=== PATIENT | male | born 1975 | race Caucasian/White ===

== ENCOUNTER → 2022-04-15 | Day surgery (SDC) | payer OTHER ==
[2022-04-10 14:32] VITALS: BMI 37.7
[~2022-04-15] MED LIST: LACTATED RINGERS 1,000 ML IV SCH; LIDOCAINE 1% (10MG/ML) FOR IV START INTRADERMA PRN; PROPOFOL 10 MG/ML 20 ML VIAL IV ONE
[2022-04-15 10:44] VITALS: TEMP 97.1
--- NOTE | 2022-04-15 12:02 | P.GSHP ---
History of Present Illness H&P Date: 04/15/22 46-year-old male here today for upper endoscopy. Patient has had a one-month history of left upper quadrant pain. Some radiation to the midline. Occurs after all meals. Some nausea. No vomiting. No GERD symptoms. No rectal bleeding or melena Past Medical History Past Medical History: GERD/Reflux Additional Past Medical History / Comment(s): states stomach pain when he eats. History of Any Multi-Drug Resistant Organisms: None Reported Past Surgical History: Orthopedic Surgery Additional Past Surgical History / Comment(s): steel plate right arm (15 yrs old) Past Anesthesia/Blood Transfusion Reactions: No Reported Reaction Past Psychological History: No Psychological Hx Reported Smoking Status: Former smoker Past Alcohol Use History: None Reported Additional Past Alcohol Use History / Comment(s): quit smoking 2007 (33 yrs old)., hx of 1/2 ppd., started smoking age 21. Past Drug Use History: None Reported - Past Family History Mother Family Medical History: No Reported History Medications and Allergies Home Medications Medication Instructions Recorded Confirmed Type Murtaza Back & Body 1 dose PO DIRECTED PRN 04/10/22 04/15/22 History Omeprazole 40 mg PO DAILY 04/15/22 04/15/22 History Allergies Allergy/AdvReac Type Severity Reaction Status Date / Time No Known Allergies Allergy Verified 04/10/22 14:21 Surgical - Exam Vital Signs Temp Pulse Resp BP Pulse Ox 97.1 F L 79 14 132/65 97 04/15/22 10:42 04/15/22 10:42 04/15/22 10:42 04/15/22 10:42 04/15/22 10:42 Physical exam: General: Well-developed, well-nourished HEENT: Normocephalic, sclerae nonicteric Abdomen: Nontender, nondistended Extremities: No edema Neuro: Alert and oriented Assessment and Plan (1) Left upper quadrant abdominal pain Narrative/Plan: Will proceed with upper endoscopy at this time. Current Visit: Yes Status: Acute Code(s): R10.12 - LEFT UPPER QUADRANT PAIN SNOMED Code(s): 223595627
--- NOTE | 2022-04-15 12:12 | P.PCN ---
Date of Procedure: 04/15/22 Procedure(s) Performed: Preoperative Dx: Left upper quadrant/epigastric pain Postoperative Dx: Mild gastritis Procedure: EGD with Bx Anesthesia: Sedation Endoscopist: Dr. Lieberman Specimens: Antrum Endoscopic Procedure: The patient was on the endoscopy table in the left decubitus position. The Olympus gastroscope was inserted into the oropharynx and passed under direct visualization to the region of the third portion of the duodenum. From that point the scope was slowly withdrawn inspecting all surface s carefully. There were no neoplastic inflammatory or polypoid lesions throughout the duodenum. The pylorus was widely patent. The stomach was carefully inspected. There was mild gastritis present. A biopsy of the antrum took place to rule out H. pylori. Retroflexion revealed a normal hiatus. The esophagus was then carefully examined. There were no neoplastic inflammatory or polypoid lesions throughout the visualized esophagus. The patient was then taken to the recovery room in stable condition per anesthesia guidelines. Recommendations: Await biopsy results. Continue antiacid therapy. Findings are relatively mild and I'm not sure that would explain the degree of pain the patient is describing.
[2022-04-15 12:22] VITALS: RESP 16
[2022-04-15 12:48] VITALS: BP 131/80; PULSE 74
== END | disposition home or self-care (01) ==
LOC: ORWHC2ENDO 09:37
PROVIDERS: ATTEND Surgery
DX: K29.50 Unspecified chronic gastritis without bleeding (principal); K21.9 Gastro-esophageal reflux disease without esophagitis; Z98.890 Other specified postprocedural states; Z79.899 Other long term (current) drug therapy; Z87.891 Personal history of nicotine dependence
CPT/HCPCS: 43239; J2704; 88305

== ENCOUNTER 2023-07-19 19:25 | Outpatient (CLI) | payer OTHER ==
--- NOTE | 2023-07-22 07:58 | SLS ---
SLEEP STUDY STUDY PERFORMED: Polysomnography. SUMMARY: This is a 48-year-old male patient who saw me recently in the office regarding sleep apnea. The patient reported loud snoring and witnessed apneas by family members with an [place] score of 15. He also is encountering excessive fatigue and tiredness and sleepiness during the day. He has a Mallampati class 4, and he has overall high clinical suspicion for obstructive sleep apnea. The patient, based on that, underwent a home sleep study, and the patient was found to have severe MANDY with an AHI of 85.6. Based on that, the patient was asked to come into the sleep center to undergo a CPAP titration. PERTINENT PHYSICAL FINDINGS: Height is 5 feet 8 inches, weight is 265, and BMI 40.3. TECHNICAL DESCRIPTION: The sleep evaluation of the patient consisted of clinical polysomnography, nocturnal respiratory battery, left and right anterior tibialis surface electromyography. The standard montage for the clinical polysomnography included the EEG, EOG, EMG, and EKG. Respiratory battery included measurements of nasal/buccal airflow, thoracic, and/or abdominal effort and intercostal surface EMG. Nocturnal oxyhemoglobin saturations were obtained by finger oximetry. Digital video and audio monitoring were done throughout the entire night to check or parasomnias. Step-eden titration with positive airway pressure was utilized during the study to control the respiratory events. SLEEP ARCHITECTURE: Total time in bed was 424.0 minutes. The total sleep time was 364.0 minutes. The sleep efficiency was calculated to be at 85.8%. Sleep architecture was characterized by 2.9% stage I, 51.2% stage II, 13.5% stage III, 32.4% REM sleep. The wake after sleep onset time was 28 minutes. Latency to REM sleep was 74 minutes. Sleep latency was 29 minutes. RESPIRATORY SUMMARY: CPAP titration was started initially at a CPAP pressure of 5 cm of water, and the CPAP pressure was increased by increments of 1 to 2 cm to reach a maximum CPAP pressure of 15 cm of water. At that point, the patient was still having some occasional obstructive apneas. The patient was accordingly switched to a BiPAP, and the titration was continued utilizing BiPAP pressures of 14/10, 13/9, 14/10, and then 16/12 cm of water. I carefully reviewed the titration taking into account the patient's sleep stage and body position. There was no obvious improvement in the overall respiratory events while being on BiPAP treatment. Oxygenation improved and obstructive respiratory events were essentially eliminated specific on the BiPAP pressures of 16/12 cm of water. The patient did encounter a REM rebound. The patient was studied in a supine body position. No desaturations and no obstructive or central apneas while being on BiPAP treatment. OXYGENATION ANALYSIS: The patient encountered significant oxygen desaturation while being on CPAP. Oxygenation improved while the patient being on a BiPAP, especially at the pressures of 16/12 cm of water. PERIODIC LIMB MOVEMENT ACTIVITY: No significant periodic limb movement activity noted. SLEEP CONTINUITY: The patient had a total of 62 arousals with an index of 10.2. Respiratory arousal index was 5.1. CARDIAC SUMMARY: The average heart rate was 93, minimum heart rate was 88, maximum heart rate was 100. ASSESSMENT: 1. Severe symptomatic obstructive sleep apnea with an AHI of 85.6. The patient failed CPAP therapy, and the patient underwent a successful BiPAP therapy with complete elimination of the obstructive respiratory events and significant improvement in the oxygenation. 2. REM rebound related to CPAP/BiPAP treatment. 3. Nocturnal oxygen desaturation recovered with BiPAP therapy. 4. Chronic hypersomnia with an [place] score of 15. 5. Obesity with BMI of 40. PLAN: Initiate BiPAP therapy at a pressure of 16/12 cm of water. Provide the patient with appropriate mask interface. The patient was given an AirFit F20 full-face mask, medium in size. Heated humidity will be applied. The patient will be encouraged to lose weight. The patient will see me back in the office in 30 to 90 days to assess clinical response and compliancy. I anticipate improvement in his symptoms while on treatment. MMODL / IJN: [id number] /
== END 2023-07-20 05:40 | disposition home or self-care (01) ==
LOC: 3 N SLEEP 19:25
PROVIDERS: ATTEND Internal Medicine Critical Care Medicine
DX: G47.33 Obstructive sleep apnea (adult) (pediatric) (principal); G47.419 Narcolepsy without cataplexy; G47.10 Hypersomnia, unspecified; E66.9 Obesity, unspecified; G47.52 REM sleep behavior disorder; G47.36 Sleep related hypoventilation in conditions classified elsewhere; Z68.41 Body mass index [BMI] 40.0-44.9, adult
CPT/HCPCS: 95811

== ENCOUNTER 2023-09-15 08:50 | Day surgery (SDC) | payer OTHER ==
[~2023-09-15 08:50] MED LIST changes: -LACTATED RINGERS 1,000 ML IV SCH; -PROPOFOL 10 MG/ML 20 ML VIAL IV ONE
[2023-09-15] MEDS: LACTATED RINGERS 1,000 ML IV SCH (09:21)
[2023-09-15 09:37] VITALS: RESP 16; TEMP 96.9
[2023-09-15 09:37] LABS: Glucose,Whole Blood 109 mg/dL (70-110)
[2023-09-15] MEDS ORDERED: LIDOCAINE 1% INJ 10MG/ML (20 ML MDV) ONE (09:41)
[2023-09-15] MEDS ORDERED: PROPOFOL 10 MG/ML 20 ML VIAL IV ONE (09:41)
--- NOTE | 2023-09-15 09:48 | P.GSHP ---
History of Present Illness H&P Date: 09/15/23 Chief Complaint: Colon cancer screening 48-year-old male here today for colonoscopy. He has not had one previously. Patient has had complaints of left upper quadrant pain. No rectal bleeding or melena. No change in bowel habits. Thinks his grandmother may have had colon cancer. Past Medical History Past Medical History: Diabetes Mellitus, GERD/Reflux, Hyperlipidemia Additional Past Medical History / Comment(s): Upper stomach pain off and on. Slightly anemic, "borderline diabetes". History of Any Multi-Drug Resistant Organisms: None Reported Past Surgical History: Orthopedic Surgery Additional Past Surgical History / Comment(s): steel plate right arm (15 yrs old) Past Anesthesia/Blood Transfusion Reactions: No Reported Reaction Smoking Status: Former smoker - Past Family History Mother Family Medical History: COPD Medications and Allergies Home Medications Medication Instructions Recorded Confirmed Type Murtaza Back & Body 1 dose PO DIRECTED PRN 04/10/22 09/10/23 History Ferrous Sulfate [Iron (65 MG 325 mg PO QAM 09/10/23 09/10/23 History Elemental)] Pantoprazole Sodium 20 mg PO BID 09/10/23 09/10/23 History Rosuvastatin Calcium 10 mg PO QAM 09/10/23 09/10/23 History metFORMIN HCL [Glucophage] 500 mg PO BID 09/10/23 09/10/23 History Allergies Allergy/AdvReac Type Severity Reaction Status Date / Time No Known Allergies Allergy Verified 09/15/23 09:18 Surgical - Exam Vital Signs Temp Pulse Resp BP Pulse Ox 96.9 F L 93 16 164/99 96 09/15/23 09:22 09/15/23 09:22 09/15/23 09:22 09/15/23 09:22 09/15/23 09:22 Physical exam: General: Well-developed, well-nourished HEENT: Normocephalic, sclerae nonicteric Abdomen: Nontender, nondistended Extremities: No edema Neuro: Alert and oriented Assessment and Plan (1) Colon cancer screening Narrative/Plan: Will proceed with colonoscopy at this time Current Visit: Yes Status: Acute Code(s): Z12.11 - ENCOUNTER FOR SCREENING FOR MALIGNANT NEOPLASM OF COLON SNOMED Code(s): 060039590
--- NOTE | 2023-09-15 10:01 | P.PCN ---
Date of Procedure: 09/15/23 Procedure(s) Performed: PREOPERATIVE DIAGNOSIS: Colon cancer screening POSTOPERATIVE DIAGNOSIS: Small sigmoid polyp, diverticulosis PROCEDURE: Colonoscopy with snare polypectomy ANESTHESIA: MAC SURGEON: Vivek Lieberman M.D. SPECIMENS: Polyp ENDOSCOPIC PROCEDURE: The patient was placed on the endoscopy table in the left decubitus position. The Olympus colonoscope was inserted into the anus and passed under direct visualization to the base of the cecum. The appendiceal orifice was visualized. From that point the scope was slowly withdrawn inspecting all surfaces carefully. There were no neoplastic inflammatory or polypoid lesions throughout the cecum, ascending, transverse, and descending colon. In the sigmoid colon a small polyp was removed using the cold snare technique. The remainder of the sigmoid and rectum were normal. The patient had moderate left-sided diverticulosis. Digital rectal examination was normal. The patient was taken to the recovery room in stable condition per anesthesia guidelines. RECOMMENDATIONS: Await biopsy results. Resume diet. No explanation for left upper quadrant pain seen at this time.
[2023-09-15] MEDS: LACTATED RINGERS 1,000 ML IV ONE (10:04)
[2023-09-15 10:12] LABS: Glucose,Whole Blood 123 mg/dL (70-110)
[2023-09-15 10:35] VITALS: BP 128/86; PULSE 74
== END 2023-09-15 10:41 | disposition home or self-care (01) ==
LOC: ORWHC2ENDO 08:50
PROVIDERS: ATTEND Surgery
DX: Z12.11 Encounter for screening for malignant neoplasm of colon (principal); K63.5 Polyp of colon; E78.5 Hyperlipidemia, unspecified; K21.9 Gastro-esophageal reflux disease without esophagitis; D64.9 Anemia, unspecified; E66.01 Morbid (severe) obesity due to excess calories; K57.30 Diverticulosis of large intestine without perforation or abscess without bleeding; Z87.891 Personal history of nicotine dependence; Z79.84 Long term (current) use of oral hypoglycemic drugs; Z79.899 Other long term (current) drug therapy; Z68.39 Body mass index [BMI] 39.0-39.9, adult
CPT/HCPCS: 88305; 45385; J2001; J2704

== ENCOUNTER → 2024-05-25 | Outpatient (CLI) | payer OTHER ==
--- NOTE | 2024-05-25 20:01 | CT ---
EXAMINATION TYPE: CT thoracic spine wo con CT DLP: 1339 mGycm, Automated exposure control for dose reduction was used. DATE OF EXAM: 05/25/2024 3:38 PM COMPARISON: None. CLINICAL INDICATION: Male, 48 years old with history of SPINAL STENOSIS M48.00; PHH, Back and rib eloy n. No injury. TECHNIQUE: Axial images of the thoracic spine were obtained without contrast. Coronal and sagittal re formats were performed. Contrast used: mL of , none Oral contrast used: none FINDINGS: The thoracic vertebral bodies have preserved heights and alignment. Mild multilevel degen eration changes throughout the spine with osteophyte formation and disc space narrowing with facet sanam int arthropathy. No significant neural foraminal or spinal canal stenosis. IMPRESSION: 1. No spinal canal or neural foraminal stenosis is identified. 2. Mild multilevel degeneration changes throughout the spine. [facility], , 05/25/2024 7:59 PM
== END | disposition home or self-care (01) ==
LOC: RADCTMAIN 15:13
PROVIDERS: ATTEND Internal Medicine Geriatric Medicine
CPT/HCPCS: 72128

== ENCOUNTER → 2024-06-27 | Outpatient (CLI) | payer OTHER ==
[2024-06-27 13:08] VITALS: BP 122/88; PULSE 76; RESP 16
--- NOTE | 2024-06-27 15:09 | P.PAINPG ---
PQRS Measure Charge Sheet Comment: HISTORY OF PRESENT ILLNESS: A 49 yr old male w at side as a referral from [facility] presents today w severe and chronic midback pain secondary to radiculopathy, spondylosis and facet arthropathy without myelopathy for evaluation. Pt states pain level is provoked at 7 /10 in intensity, constant, localized in the L mid spine, predominantly axial, dull in character w occasional shooting pain towards the L ribs. Pain is provoked by over activity. Pain is alleviated by chiropractic treatments semi monthly x 3 mo which ended in 2022, physician guided home exercises 4 weekly since 2022, medications (Tyl), topical [place], repositioning and rest . Oswestry axial pain score at 24. PMH: OA, NIDDM II, GERD, Hyperlipidemia PSH: Colonoscopy (2023), RUE Steel Plate (1989) SH: Former tobaccouser, Occ ETOH use, No illicit drug use FH: Mo- COPD All: See list Meds: See list REVIEW OF ORGAN SYSTEMS: CONSTITUTIONAL: No fevers or chills. No recent weight loss. NEUROLOGICAL: + numbness and tingling along the distal extremities. No seizure disorders or headaches. MUSCULOSKELETAL: + pain PSYCHIATRIC: Denies current depression or suicidal thoughts. Physical Examinations : Constitutional : Cooperative , not in acute distress . Neurologic : Cranial nerve II to XII intact. No focal neurological deficits. Psychiatric : alert & oriented x 3. Matching mood & appropriate affect. Judgment & insight intact. Musculoskeletal : Cervical Spine Motor strength in the deltoid and biceps: Normal right side. Normal Left side Motor strength biceps and the wrist extensors: Normal right side . Normal left side Motor strength in the triceps muscle: Normal right side. Normal left side Deep tendon reflexes: Normal at the biceps. Normal at Brachioradialis. Normal at triceps Vertebral body tenderness to deep palpation over Cervical facet loading test: positive bilaterally Spurling test: positive bilaterally Neck distraction test: positive bilaterally Deborah sign: positive bilaterally Thoracic spine Vertebral body TTP over T9 Massey test positive L T9-T10 Lumbar spine Motor strength lower extremities ,thigh and legs 5/5 Right side , 5/5 Left side Deep tendon reflexes : Normal Knee Jerk. Normal Ankle Jerk Vertebral body tenderness over Massey Test positive Lumbar facet Loading Test: positive Right / positive Left Range of motion of the lumbar spine Flexion 30 degrees, extension 10 degrees Straight Leg Raise test: Left/ Right positive at degrees Aston test: positive right / positive left. Severe tenderness over the Sacroiliac joint on the Right / Left sides Gaenslen test: positive bilaterally Seated flexion test: positive bilaterally. Sacral spine : Severe tenderness over the Sacroiliac joint: right side / left side Range of motion: Flexion of the lumbar spine <60 degrees Range of motion: Extension of the lumbar spine <20 degrees Gaenslen's Test positive Aston test: positive right side / left side Thigh Thrust Test Sacral Thrust Test Imaging: CT non contrast thoracic spine from 10/08/23 & 06/04/24 reviewed Assessment/ Plan : Thoracic radiculopathy Recommendation of BRINDA L paramedian T9-T10 #1. Risks, benefits of procedure discussed and patient verbalized understanding. Admits to anti- coagulant use or medical history of diabetes. Protocol for discontinuation/ continuation of medications ricardo procedure discussed. All questions answered. I have spent greater than 30 minutes on patient care today. Dr Burciaga was available by phone for the evaluation of this patient. The time was used to review the medical records including relevant urine studies and Prescription history (MAPs), review of the available imaging, evaluation and examination of the patient, coordination of care with the medical staff and if applicable referring physicians, as well as creation of the medical record Home Medications: Ambulatory Orders Murtaza Back & Body 1 dose PO DIRECTED PRN 04/10/22 Ferrous Sulfate [Iron (65 MG Elemental)] 325 mg PO QAM 09/10/23 Pantoprazole Sodium 20 mg PO BID 09/10/23 Rosuvastatin Calcium 10 mg PO QAM 09/10/23 metFORMIN HCL [Glucophage] 500 mg PO BID 09/10/23 Controlled Substance Measures - Controlled Substance Measures Is patient prescribed a controlled substance at discharge?: No
== END ==
LOC: PNWHC3 12:36
PROVIDERS: ATTEND Specialist
DX: M51.14 Intervertebral disc disorders with radiculopathy, thoracic region (principal)
CPT/HCPCS: 99211

== ENCOUNTER 2024-07-29 07:24 | Day surgery (SDC) | payer OTHER ==
[~2024-07-29 07:24] MED LIST changes: +LACTATED RINGERS 1,000 ML IV SCH; -LIDOCAINE 1% (10MG/ML) FOR IV START INTRADERMA PRN
[2024-07-29] MEDS ORDERED: LACTATED RINGERS 1,000 ML IV SCH (07:47)
[2024-07-29 08:04] VITALS: TEMP 97.2
[2024-07-29 08:11] LABS: Glucose,Whole Blood 104 mg/dL (70-110)
[2024-07-29] MEDS ORDERED: methylPREDNISolone ACETATE 80 MG/ML 1 ML VIAL ONE (08:46)
[2024-07-29] MEDS ORDERED: IOPAMIDOL M300 15ML VIAL ONE (08:46)
[2024-07-29 09:15] VITALS: RESP 16
[2024-07-29 09:27] VITALS: BP 146/87; PULSE 72
--- NOTE | 2024-07-29 09:31 | P.PCN ---
Description of Procedure: PREOPERATIVE DIAGNOSIS: 1- Thoracic Degenerative Disc Diseases 2-Thoracic spondylosis with Facet arthropathy without myelopathy. 3-Thoracic spinal stenosis POSTOPERATIVE DIAGNOSIS: 1-Thoracic degenerative disc disease. 2-Thoracic spondylosis with facet arthropathy without myelopathy. 3-Thoracic spinal stenosis. PROCEDURE Injection of radio contrast material into T9-10 interspace, interpretation of epidurogram, injection of steroid at T 9-10 epidural space under fluoroscopic guidance. ANESTHESIA: Lidocaine 1% subcutaneously. In OR continuous pulse ox, EKG, blood pressure and verbal communication was maintained with the patient. EBL: Minimal PROCEDURE INDICATION: Before the procedure were discussed with the patient detailed procedure, alternatives, complications including lung puncture, infection, bleeding, nerve damage, paralysis all of which could be permanent. Patient understands and all questions were answered. PROCEDURE DESCRIPTION : After getting consent, patient in OR in prone position. Back was prepped with chlorhexidine and draped in sterile fashion. After injecting 10 mL of 1% lidocaine subcutaneously, a 20-gauge Tuohy needle was introduced at T 9-10 interspace with loss of resistance technique using a syringe filled with air. Negative CSF, negative blood, negative paresthesia. Needle position was confirmed with AP and lateral view of the fluoroscope. After repeat negative aspiration 2 mL of Omnipaque 200 water soluble contrast was injected. Contrast was noted in the epidural space. No contrast was noted into intrathecal or intravascular space. After repeat negative aspiration 5 mL solution was injected intermittently which consists of 4 mL of preservative-free normal saline mixed with 1 mL of 80 mg Depo-Medrol. Needle was withdrawn intact. Skin was cleansed and Band-Aids was applied. DISPOSITION / PLANS: The patient tolerated the procedure well. No complication. The patient was placed in a supine position and transferred to the recovery area in a stable condition for observation. There was no evidence of lower extremity motor or sensory deficit after the procedure. Patient was discharged from the recovery room after meeting discharge criteria. Home discharge instructions were given to the patient by the staff. The patient was reexamined prior to discharge. The patient will schedule a follow up in the clinic in 2-4 weeks.
--- NOTE | 2024-07-29 09:45 | FL ---
Fluoroscopy History: TESI Thoracic Epid Inj 41sec fluoro time .28620 [facility], , 07/29/2024 9:42 AM
== END 2024-07-29 09:40 | disposition home or self-care (01) ==
LOC: ORPAIN 07:24
PROVIDERS: ATTEND Pain Medicine Interventional Pain Medicine
DX: M47.814 Spondylosis without myelopathy or radiculopathy, thoracic region (principal); M48.04 Spinal stenosis, thoracic region; M51.34 Other intervertebral disc degeneration, thoracic region; Z79.899 Other long term (current) drug therapy
CPT/HCPCS: 62321; Q9967; J1010

== ENCOUNTER → 2024-08-25 | Outpatient (CLI) | payer OTHER ==
[2024-08-25 11:12] VITALS: BP 154/90; PULSE 92; RESP 16; TEMP 97.1
--- NOTE | 2024-08-25 14:31 | P.PAINPG ---
PQRS Measure Charge Sheet Comment: HISTORY OF PRESENT ILLNESS: A 49 yr old male presents today w severe and chronic midback pain secondary to radiculopathy, spondylosis and facet arthropathy without myelopathy for evaluation s/p BRINDA T9-T10 #1. Pt states he experienced 95% pain relief x 1 mo s/p procedure. Pt states pain level is provoked at 1 /10 in intensity, constant, localized in the L mid spine, predominantly axial, dull in character w occasional shooting pain towards the L ribs. Pain is provoked by over activity. Pain is alleviated by chiropractic treatments semi monthly x 3 mo which ended in 2022, physician guided home exercises 4 weekly since 2022, medications, topical [place], repositioning and rest . Interventional procedures include BRINDA T9-T10 x1 Medications include Tyl, TigerBalm REVIEW OF ORGAN SYSTEMS: CONSTITUTIONAL: No fevers or chills. No recent weight loss. NEUROLOGICAL: + numbness and tingling along the distal extremities. No seizure disorders or headaches. MUSCULOSKELETAL: + pain PSYCHIATRIC: Denies current depression or suicidal thoughts. Physical Examinations : Constitutional : Cooperative , not in acute distress . Neurologic : Cranial nerve II to XII intact. No focal neurological deficits. Psychiatric : alert & oriented x 3. Matching mood & appropriate affect. Judgment & insight intact. Musculoskeletal : Cervical Spine Motor strength in the deltoid and biceps: Normal right side. Normal Left side Motor strength biceps and the wrist extensors: Normal right side . Normal left side Motor strength in the triceps muscle: Normal right side. Normal left side Deep tendon reflexes: Normal at the biceps. Normal at Brachioradialis. Normal at triceps Vertebral body tenderness to deep palpation over Cervical facet loading test: positive bilaterally Spurling test: positive bilaterally Neck distraction test: positive bilaterally Deborah sign: positive bilaterally Thoracic spine Vertebral body TTP over T9 Massey test positive L T9-T10 Lumbar spine Motor strength lower extremities ,thigh and legs 5/5 Right side , 5/5 Left side Deep tendon reflexes : Normal Knee Jerk. Normal Ankle Jerk Vertebral body tenderness over Massey Test positive Lumbar facet Loading Test: positive Right / positive Left Range of motion of the lumbar spine Flexion 30 degrees, extension 10 degrees Straight Leg Raise test: Left/ Right positive at degrees Aston test: positive right / positive left. Severe tenderness over the Sacroiliac joint on the Right / Left sides Gaenslen test: positive bilaterally Seated flexion test: positive bilaterally. Sacral spine : Severe tenderness over the Sacroiliac joint: right side / left side Range of motion: Flexion of the lumbar spine <60 degrees Range of motion: Extension of the lumbar spine <20 degrees Gaenslen's Test positive Aston test: positive right side / left side Thigh Thrust Test Sacral Thrust Test Imaging: CT non contrast thoracic spine from 10/08/23 & 06/04/24 reviewed Assessment/ Plan : Thoracic radiculopathy Will manage residual pain and may RTC on an as needed basis. All questions answered. I have spent greater than 30 minutes on patient care today. Dr Burciaga was available by phone for the evaluation of this patient. The time was used to review the medical records including relevant urine studies and Prescription history (MAPs), review of the available imaging, evaluation and examination of the patient, coordination of care with the medical staff and if applicable referring physicians, as well as creation of the medical record PQRS Narrative: Hx Alcohol Use (MH) No Home Medications: Ambulatory Orders Murtaza Back & Body 1 dose PO DIRECTED PRN 04/10/22 Rosuvastatin Calcium 10 mg PO HS 09/10/23 Lisinopril 10 mg PO HS 07/21/24 Controlled Substance Measures - Controlled Substance Measures Is patient prescribed a controlled substance at discharge?: No
== END ==
LOC: PNWHC3 10:34
PROVIDERS: ATTEND Specialist
DX: M54.14 Radiculopathy, thoracic region (principal)
CPT/HCPCS: 99211

== ENCOUNTER → 2025-03-01 | Outpatient (CLI) | payer OTHER ==
[2025-03-01 14:12] VITALS: BP 126/90; PULSE 101; RESP 16; TEMP 98.7
--- NOTE | 2025-03-01 16:00 | P.PAINPG ---
Objective - Vital Signs Vital signs: Vital Signs Temp 98.7 F 03/01/25 14:01 Pulse 101 H 03/01/25 14:01 Resp 16 03/01/25 14:01 BP 126/90 03/01/25 14:01 Pulse Ox 95 03/01/25 14:01 FiO2 Intake & Output 02/28/25 03/01/25 03/01/25 18:59 06:59 18:59 Weight 113.398 kg PQRS Measure Charge Sheet Mode of Arrival: Ambulatory Comment: HISTORY OF PRESENT ILLNESS: A 49 yr old male w at side presents today w severe and chronic midback pain secondary to radiculopathy, spondylosis and facet arthropathy without myelopathy for evaluation. Pt states pain level is provoked at 4-8 /10 in intensity, constant, localized in the L mid spine, predominantly axial, dull in character w occasional shooting pain towards the L ribs. Pain is provoked by over activity. Pain is alleviated by chiropractic treatments semi monthly x 3 mo which ended in 2022, physician guided home exercises 4 weekly since 2022, medications, topical [place], repositioning and rest . Oswestry axial pain score of 31. Interventional procedures include BRINDA T9-T10 x1 Medications include Tyl, TigerBalm REVIEW OF ORGAN SYSTEMS: CONSTITUTIONAL: No fevers or chills. No recent weight loss. NEUROLOGICAL: + numbness and tingling along the distal extremities. No seizure disorders or headaches. MUSCULOSKELETAL: + pain PSYCHIATRIC: Denies current depression or suicidal thoughts. Physical Examinations : Constitutional : Cooperative , not in acute distress . Neurologic : Cranial nerve II to XII intact. No focal neurological deficits. Psychiatric : alert & oriented x 3. Matching mood & appropriate affect. Judgment & insight intact. Musculoskeletal : Cervical Spine Motor strength in the deltoid and biceps: Normal right side. Normal Left side Motor strength biceps and the wrist extensors: Normal right side . Normal left side Motor strength in the triceps muscle: Normal right side. Normal left side Deep tendon reflexes: Normal at the biceps. Normal at Brachioradialis. Normal at triceps Vertebral body tenderness to deep palpation over Cervical facet loading test: positive bilaterally Spurling test: positive bilaterally Neck distraction test: positive bilaterally Deborah sign: positive bilaterally Thoracic spine Vertebral body TTP over T9 Massey test positive L T9-T10 Lumbar spine Motor strength lower extremities ,thigh and legs 5/5 Right side , 5/5 Left side Deep tendon reflexes : Normal Knee Jerk. Normal Ankle Jerk Vertebral body tenderness over Massey Test positive Lumbar facet Loading Test: positive Right / positive Left Range of motion of the lumbar spine Flexion 30 degrees, extension 10 degrees Straight Leg Raise test: Left/ Right positive at degrees Aston test: positive right / positive left. Severe tenderness over the Sacroiliac joint on the Right / Left sides Gaenslen test: positive bilaterally Seated flexion test: positive bilaterally. Sacral spine : Severe tenderness over the Sacroiliac joint: right side / left side Range of motion: Flexion of the lumbar spine <60 degrees Range of motion: Extension of the lumbar spine <20 degrees Gaenslen's Test positive Aston test: positive right side / left side Thigh Thrust Test Sacral Thrust Test Imaging: CT non contrast thoracic spine from 10/08/23 & 06/04/24 reviewed Assessment/ Plan : Thoracic radiculopathy Recommendation of BRINDA T9-T10 #2. Risks, benefits of procedure discussed and pt verbalized understanding. Protocol for discontinuation/ continuation of medications ricardo procedure discussed. All questions answered. I have spent greater than 30 minutes on patient care today. Dr Burciaga was available by phone for the evaluation of this patient. The time was used to review the medical records including relevant urine studies and Prescription history (MAPs), review of the available imaging, evaluation and examination of the patient, coordination of care with the medical staff and if applicable referring physicians, as well as creation of the medical record - Pain Location Bilateral Upper Back Non-Pharmacological Interventions: Distraction, Inactivity, Position/Reposition, Sitting Pharmacological Interventions: Epidural, PRN Medication PQRS Narrative: Blood Pressure 126/90 Pain Intensity [Bilateral 4 Upper Back] Scale Used Numeric (1 - 10) Hx Alcohol Use (MH) No Home Medications: Ambulatory Orders Rosuvastatin Calcium 10 mg PO HS 09/10/23 Lovastatin [Mevacor] 40 mg PO HS 03/01/25 Controlled Substance Measures - Controlled Substance Measures Is patient prescribed a controlled substance at discharge?: No
== END ==
LOC: PNWHC3 13:45
PROVIDERS: ATTEND Specialist
DX: M47.24 Other spondylosis with radiculopathy, thoracic region (principal)
CPT/HCPCS: 99211